=== PATIENT | male | born 1940 ===

== ENCOUNTER 2017-07-10 08:17 | Day surgery (SDC) | payer OTHER ==
[~2017-07-10 08:17] MED LIST: CIPRO500 MG PO; IMODIUM A-D2 MG PO; INTESTINEX1 CA1 PO; PROTONIX40 MG PO; ULTRACET PO
== END 2017-07-10 15:05 | disposition home or self-care (01) ==
LOC: AMB-ENDOS 08:17
DX: K44.9 Diaphragmatic hernia without obstruction or gangrene (principal); Z85.048 Personal history of other malignant neoplasm of rectum, rectosigmoid junction, and anus; R63.4 Abnormal weight loss

== ENCOUNTER → 2019-07-30 09:13 | Outpatient (CLI) | payer OTHER | END | disposition home or self-care (01) | LOC: LAB 09:13 | DX: J44.1 Chronic obstructive pulmonary disease with (acute) exacerbation (principal) ==